=== PATIENT | female | born 2000 | race Caucasian/White ===

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

== ENCOUNTER 2020-06-08 19:01 | Emergency (ER) | payer BC ==
[~2020-06-08] VITALS: Ht 177.8 cm; Wt 81.6 kg
[~2020-06-08 19:01] MED LIST changes: +NAPROSYN500 MG PO
[2020-06-08] MEDS ORDERED: PREDNISONE20 M1 PO (19:43)
== END 2020-06-08 19:57 | disposition home or self-care (01) ==
LOC: ED 19:01
DX: L25.5 Unspecified contact dermatitis due to plants, except food (principal); Z79.899 Other long term (current) drug therapy

== ENCOUNTER 2020-10-30 18:19 | Emergency (ER) | payer BC ==
[~2020-10-30 18:19] MED LIST changes: +PREDNISONE20 M1 PO
[2020-10-30 18:57] LABS: BILIRUBIN Negative (Negative); BLOOD 3+ (Negative); CLARITY Cloudy (Clear); COLOR Yellow (Yellow); GLUCOSE Negative (Negative); KETONE Negative (Negative); LEUKO ESTERASE 1+ (Negative); NITRITE Positive (Negative); PH 5.5 (4.5-8.0)
[2020-10-30 19:03] LABS: BACTERIA 4+; EPITHELIAL CELLS TNTC; MUCOUS TRACE
[2020-10-30] MEDS ORDERED: CEPHALEXIN500 M1 PO (19:26)
== END 2020-10-30 19:59 | disposition home or self-care (01) ==
LOC: ED 18:19
PROVIDERS: Student in an Organized Health Care Education/Training Program
DX: N39.0 Urinary tract infection, site not specified (principal)

== ENCOUNTER 2020-11-01 09:34 | Emergency (ER) | payer BC ==
[~2020-11-01] VITALS: Ht 177.8 cm; Wt 83.9 kg
[~2020-11-01 09:34] MED LIST changes: +CEPHALEXIN500 M1 PO
[2020-11-01 10:04] LABS: BASO % 0.4 % (0.0-1.0); EOS # 0.1 10*3/uL (0.0-0.4); HEMATOCRIT 41.9 % (37.0-47.0); LYMPH % 23.9 % (27.0-41.0); MEAN CELL VOLUME 85.2 fl (81.0-99.0); MEAN CORPUSCULAR HGB 27.6 pg (27.0-31.0); MEAN CORPUSCULAR HGB CONC 32.5 g/dl (33.0-37.0); MEAN PLATELET VOLUME 10.3 fl (9.6-12.3); MONO # 0.5 10*3/uL (0.1-1.0); MONO % 5.5 % (3.0-9.0); NEUT # 5.7 10*3/uL (2.3-7.9); PLATELET COUNT AUTOMATED 340 10*3/uL (130-400); RED BLOOD COUNT 4.92 10*6/uL (4.10-5.10); RED CELL DISTRI WIDTH 13.7 % (0-14.5); WHITE BLOOD COUNT 8.2 10*3/uL (4.8-10.8)
[2020-11-01 10:18] LABS: ALKALINE PHOSPHATASE 73 U/L (45-117); BUN 12 mg/dl (7-24); CHLORIDE 108 mmol/L (98-107); CREATININE 0.85 mg/dL (0.55-1.02); SGOT/AST 9 IU/L (3-35); SGPT/ALT 23 U/L (12-78); SODIUM 140 mmol/L (136-145); TOTAL PROTEIN 7.8 gm/dL (6.4-8.2)
== END 2020-11-01 11:07 | disposition home or self-care (01) ==
LOC: ED 09:34
PROVIDERS: Physician Assistant
DX: O46.8X1 Other antepartum hemorrhage, first trimester (principal); Z3A.08 8 weeks gestation of pregnancy; Z79.2 Long term (current) use of antibiotics; Z79.899 Other long term (current) drug therapy

== ENCOUNTER → 2020-11-05 | Outpatient (CLI) | payer BC | END | disposition home or self-care (01) | LOC: LAB 09:43 | PROVIDERS: ATTEND Nurse Practitioner Women's Health | DX: O20.9 Hemorrhage in early pregnancy, unspecified (principal) ==

== ENCOUNTER → 2021-01-26 | Outpatient (CLI) | payer BC, OTHER | END | disposition home or self-care (01) | LOC: US 01-10 13:00 | PROVIDERS: ATTEND Nurse Practitioner Women's Health | DX: Z34.80 Encounter for supervision of other normal pregnancy, unspecified trimester (principal); Z3A.11 11 weeks gestation of pregnancy ==

== ENCOUNTER → 2021-03-18 | Outpatient (CLI) | payer BC, OTHER ==
[2021-03-19 07:06] LABS: RUBELLA AB IGM <20.0 AU/mL (0.0-19.9); TOXOPLASMA GONDII IGM <3.0 AU/mL (0.0-7.9)
== END | disposition home or self-care (01) ==
LOC: LAB 15:00
PROVIDERS: ATTEND Internal Medicine
DX: O09.892 Supervision of other high risk pregnancies, second trimester (principal); Z3A.00 Weeks of gestation of pregnancy not specified

== ENCOUNTER → 2022-06-09 | Outpatient (CLI) | payer BC ==
[2022-06-14 17:06] LABS: TB1 Ag VALUE 0.05 IU/mL (.)
== END | disposition home or self-care (01) ==
LOC: LAB 08:51
PROVIDERS: Family Medicine; ATTEND Family Medicine
DX: Z11.1 Encounter for screening for respiratory tuberculosis (principal)

== ENCOUNTER → 2022-06-19 | Outpatient (CLI) | payer BC | END | disposition home or self-care (01) | LOC: LAB 14:00 | PROVIDERS: ATTEND Family Medicine | DX: Z11.1 Encounter for screening for respiratory tuberculosis (principal); Z02.1 Encounter for pre-employment examination ==

== ENCOUNTER 2023-01-13 19:40 | Emergency (ER) | payer BC ==
[~2023-01-13] VITALS: Ht 177.8 cm; Wt 88.5 kg
[2023-01-13] MEDS ORDERED: NAPROSYN500 MG PO (20:48)
== END 2023-01-13 21:04 | disposition home or self-care (01) ==
LOC: ED 19:40
DX: S63.501A Unspecified sprain of right wrist, initial encounter (principal); V86.56XA Driver of dirt bike or motor/cross bike injured in nontraffic accident, initial encounter; Y93.55 Activity, bike riding; Y92.410 Unspecified street and highway as the place of occurrence of the external cause; Y99.8 Other external cause status

== ENCOUNTER 2024-07-23 13:40 | Emergency (ER) | payer OTHER ==
[~2024-07-23] VITALS: Ht 177.8 cm; Wt 79.4 kg
[2024-07-23] MEDS ORDERED: LINZESS145 MC1 PO (13:52)
[2024-07-23] MEDS ORDERED: MORPHINE Sulfate 2 MG/ML SYR IV ONE (14:00)
[2024-07-23] MEDS ORDERED: Ondansetron Hydrochloride 4 MG/2 ML VIAL IV ONE (14:00)
[2024-07-23] MEDS ORDERED: SODIUM CHLORIDE 0.9% 1,000 ML IV ONE (14:00)
[2024-07-23] MEDS ORDERED: IOHEXOL 300 MG/ML 100 ML VIAL IV ONE (14:10)
[2024-07-23 14:13] LABS: BASO % 0.5 % (0.0-1.0); EOS # 0.1 10*3/uL (0.0-0.4); EOS % 0.8 % (1.0-4.0); HEMATOCRIT 41.5 % (37.0-47.0); LYMPH # 2.7 10*3/uL (1.3-4.4); LYMPH % 30.9 % (27.0-41.0); MEAN CELL VOLUME 88.5 fl (81.0-99.0); MEAN CORPUSCULAR HGB 29.9 pg (27.0-31.0); MEAN CORPUSCULAR HGB CONC 33.7 g/dl (33.0-37.0); MEAN PLATELET VOLUME 10.7 fl (9.6-12.3); MONO # 0.4 10*3/uL (0.1-1.0); MONO % 4.3 % (3.0-9.0); NEUT # 5.6 10*3/uL (2.3-7.9); NEUT % 63.3 % (47.0-73.0); PLATELET COUNT AUTOMATED 281 10*3/uL (130-400); RED BLOOD COUNT 4.69 10*6/uL (4.10-5.10); RED CELL DISTRI WIDTH 13.1 % (0-14.5); WHITE BLOOD COUNT 8.9 10*3/uL (4.8-10.8)
[2024-07-23 14:15] LABS: BILIRUBIN Negative (Negative); BLOOD Negative (Negative); CLARITY Cloudy (Clear); COLOR Yellow (Yellow); GLUCOSE Negative (Negative); KETONE Trace (Negative); LEUKO ESTERASE 1+ (Negative); NITRITE Negative (Negative); UROBILINOGEN 0.2 E.U./dl (0.0-1.0)
[2024-07-23 14:23] LABS: EPITHELIAL CELLS 16-20; RBC 0-2 rbc/hpf (0-2)
[2024-07-23 14:24] LABS: BACTERIA 1+
[2024-07-23 14:37] LABS: ALKALINE PHOSPHATASE 56 U/L (46-116); BUN 8 mg/dl (9-23); CHLORIDE 106 mmol/L (98-107); LIPASE 40 U/L (12-53); POTASSIUM 3.7 mmol/L (3.4-5.1); SGPT/ALT 11 U/L (5-49); TOTAL PROTEIN 7.2 gm/dL (6.0-8.0)
== END 2024-07-23 16:20 | disposition home or self-care (01) ==
LOC: ED 13:40
PROVIDERS: Physician Assistant Medical
DX: K80.50 Calculus of bile duct without cholangitis or cholecystitis without obstruction (principal); M54.2 Cervicalgia; R11.10 Vomiting, unspecified